=== PATIENT | female | born 1995 | race Two or more races ===

== ENCOUNTER → 2016-06-24 | Outpatient (CLI) | payer OTHER ==
[~2016-06-24] MED LIST: MOTRIN400 MG PO; NAPROSYN250 M1 PO; NO MEDICATIONS
--- NOTE | ~2016-06-24 | CR230 ---
[facility] A Service of [facility] RADIOLOGY TEXT RESULTS PATIENT: HARSHA PRICE LOCATION: [facility] : [birth year] UNIT #: [id number] AGE: [address]: AYSHA OWENS APRN SEX: F ORDER DR: [id number] [address] [address] [id number] O MR#: [id number] Acc #: [id number] NAME: HARSHA PRICE : 1995 SEX: F STUDY DATE/TIME: 06/24/2016 17:02 UNIT: [facility] ROOM: STUDY DESCRIPTION: CR Shoulder Min 2 View Rt Attending Physician: Aysha Owens Aprn Ordering Physician: Aysha Owens Aprn MEDICAL IMAGING REPORT This report is preliminary unless electronic signature is present. EXAM Right shoulder HISTORY Shoulder pain for the past month with no known trauma. TECHNIQUE 3 views of the shoulder were obtained. FINDINGS AP view with internal and external rotation of the shoulder girdle shows satisfactory relationship of the humeral head and glenoid fossa. The joint space is normal. There is no identifiable fracture or dislocation or bony destructive process about the shoulder girdle anatomy. The acromioclavicular joint is normal. There is no radiopaque foreign body in the region. IMPRESSION Normal shoulder. Dictated by... Troy Pike M.D. THIS IS AN ELECTRONICALLY VERIFIED REPORT Troy Pike M.D. at 06/27/2016 5:23 PM RLF/pcl TD: 06/24/2016 21:33 [facility] A Service of [facility] RADIOLOGY TEXT RESULTS PATIENT: HARSHA PRICE LOCATION: [facility] : [birth year] UNIT #: [id number] AGE: [address]: AYSHA OWENS APRN SEX: F ORDER DR: ALEXUS #: [id number] MEDICAL IMAGING REPORT Page 1 of 1
--- NOTE | ~2016-06-24 | CR58 ---
[facility] A Service of [facility] RADIOLOGY TEXT RESULTS PATIENT: HARSHA PRICE LOCATION: [facility] : [birth year] UNIT #: [id number] AGE: [address]: AYSHA OWENS APRN SEX: F ORDER DR: [id number] [address] [address] [id number] O MR#: [id number] Acc #: [id number] NAME: HARSHA PRICE : 1995 SEX: F STUDY DATE/TIME: 06/24/2016 17:07 UNIT: [facility] ROOM: STUDY DESCRIPTION: CR Cervical Spine 2 or 3 Views Attending Physician: Aysha Owens Aprn Ordering Physician: Aysha Owens Aprn MEDICAL IMAGING REPORT This report is preliminary unless electronic signature is present. EXAM Cervical spine series HISTORY Right-sided neck pain with right arm numbness and tingling. Symptoms over the past month with no history of trauma. TECHNIQUE 3 views the cervical spine were obtained. FINDINGS Three views of the cervical spine show satisfactory preservation of the cervical lordosis. The cervical soft tissues are normal. All anterior and posterior elements in the cervical area are anatomically normal without identifiable fracture, dislocation, malignant lytic or sclerotic change, or arthritis. There is no congenital defect apparent. IMPRESSION Normal cervical spine. Dictated by... Troy Pike M.D. THIS IS AN ELECTRONICALLY VERIFIED REPORT Troy Pike M.D. at 06/27/2016 5:23 PM RLF/pcl TD: 06/24/2016 21:32 JOB #: [id number] [facility] A Service [facility] RADIOLOGY TEXT RESULTS PATIENT: HARSHA PRICE LOCATION: [facility] : [birth year] UNIT #: [id number] AGE: [address]: AYSHA OWENS APRN SEX: F ORDER DR: MEDICAL IMAGING REPORT Page 1 of 1
== END | disposition home or self-care (01) ==
LOC: SRAD 16:54
DX: M25.511 Pain in right shoulder (principal); M54.2 Cervicalgia
CPT/HCPCS: 72040; 73030